=== PATIENT | male | born 1955 | race Caucasian/White ===

== ENCOUNTER 2017-01-25 08:42 | Inpatient (IN) | payer OTHER, MEDICARE ==
[2017-01-21 11:13] LABS: HEMATOCRIT 46.8 % (40.0-51.0); HEMOGLOBIN 15.9 g/dL (13.6-17.8)
[2017-01-21 11:15] LABS: ASCORBIC ACID (UR NOT ORDER) NEG (NEG); BILIRUBIN, URINE NEGATIVE (NEG); KETONE, URINE NEGATIVE (NEG); LEUKOCYTE ESTERASE(NOT OR NEG (NEG); WBC (NOT ORDERED) (RFLEX) < 1 (0-5)
[2017-01-21 11:26] LABS: BUN (BLOOD UREA NITROGEN) 13 MG/DL (6-23); CALCIUM, SERUM 9.5 MG/DL (8.5-10.4); CHLORIDE, SERUM 110 MMOL/L (96-112); CO2 (CARBON DIOXIDE) 27 MMOL/L (24-34); CREATININE 0.92 MG/DL (0.70-1.30); GFR AFRICAN AMERICAN 102 ML/MIN (>=60); GFR NON AFRICAN AMERICAN 88 ML/MIN (>=60); GLUCOSE, SERUM 93 MG/DL (60-99); POTASSIUM, SERUM 4.2 MMOL/L (3.5-5.3); SODIUM, SERUM 144 MMOL/L (135-148)
--- NOTE | ~2017-01-25 | OP ---
Record Of Operation [facility] [address] [place]. [address] NAME: BRADY MOISE : 51 STATUS : DIS IN PAT#: [id number] AGE: 61 ADM/REG DATE : 01/25/17 MR#: [id number] REPORT SERV DATE: 01/26/17 DICTATED BY: FRANCESCO WHITESIDE DATE: 01/26/17 REPORT STATUS : Draft TRANSCRIBED BY: MODL DATE: 01/26/17 DATE OF PROCEDURE: 01/25/2017 SURGEON: Francesco Whiteside M.D. TITLE OF OPERATION: 1. Robot-assisted laparoscopic radical prostatectomy. 2. Robotic-assisted laparoscopic extended bilateral pelvic lymph node dissection. 3. Open umbilical hernia repair. PREOPERATIVE DIAGNOSIS: Intermediate risk prostate cancer. POSTOPERATIVE DIAGNOSES: 1. Intermediate risk prostate cancer. 2. Umbilical hernia. SPECIMENS: 1. Anterior fat pad. 2. Prostate and seminal vesicles. 3. Bilateral pelvic lymph nodes. ANESTHESIA: General. COMPLICATIONS: None. IMPLANTS: 1. 18-Yi Torres catheter. 2. #10 round JEANNE drain. NARRATIVE: The patient was brought to the operating room, identified by his wristband. General anesthesia was induced and Ancef was given for preoperative antibiotics. He was placed in dorsal lithotomy position, prepped and draped in sterile fashion. His abdomen was insufflated to a pressure of 15 mmHg using a Veress needle. An 8 mm port was placed in a supraumbilical position under direct vision. The abdomen was inspected. There were some omental adhesions in the area of the umbilical hernia. Two 8 mm ports were placed in the left side of the body for a robotic ports and an 8 mm port was placed in the right side of the body for the final robotic port. Using laparoscopic scissors, the omental adhesions were sharply taken off the anterior abdominal wall. Care was taken to not damage any structures, there was no bowel involved. Next, a 12 mm port was placed in the right lower quadrant for scheduling assistant port and a 5 mm port was placed in the right upper quadrant for scheduling assistant port. The patient was placed in Trendelenburg and the robot was docked. I began the operation by incising the peritoneum over the seminal vesicles and vas deferens. These structures were dissected out bilaterally. The vas deferens were clipped and divided. The pedicles to the seminal vesicles were clipped and divided. Next, these structures were lifted anteriorly and Denonvilliers' fascia was sharply incised. The Denonvilliers' fascia was bluntly pressed onto the rectum from the base of the prostate to the apex. Next, the Record Of Operation [facility] [address] [place]. [address] NAME: BRADY MOISE : 51 STATUS : DIS IN PAT#: [id number] AGE: 61 ADM/REG DATE : 01/25/17 MR#: [id number] REPORT SERV DATE: 01/26/17 DICTATED BY: FRANCESCO WHITESIDE DATE: 01/26/17 REPORT STATUS : Draft TRANSCRIBED BY: MODL DATE: 01/26/17 bladder was dropped off the anterior abdominal wall with electrocautery and the prostate was identified. The prostate was defatted using bipolar cautery and scissors. The superficial dorsal vein was controlled with bipolar cautery and scissors. Next, the endopelvic fascia were divided bilaterally. The puboprostatic ligaments were divided bilaterally. The levator fibers were brushed bluntly off the prostate and the dorsal vein was precisely identified. The dorsal vein was then stapled with a 45 mm endovascular stapler. The dorsal vein was then oversewn with 3-0 V-Loc suture. This was suspended to the pubis bone for additional urethral support. Next, the bladder neck preserving operation was performed. The fibrofatty tissue overlying the bladder neck was controlled with bipolar cautery and scissors. The bladder neck was precisely identified and entered anteriorly. The detrusor fibers were then taken off the prostate with electrocautery. The posterior bladder neck was then sharply incised. This was then carried posteriorly to identify the seminal vesicles and vas deferens, these were all dissected out. These were then delivered into the operative field. The pedicles to the prostate were then clipped and divided bilaterally. A partial nerve sparing operation was performed given the high volume of 4+3=7 cancer was present bilaterally. Tissue was left on the prostate intentionally, this tissue was soft. This was carried out from the base to the apex bilaterally. The urethra was then sharply divided under direct vision ensuring adequate urethral length. The posterior striated sphincter was then divided. The prostate was then freed and placed into an EndoCatch bag. The arterial bleeders were controlled with clips. Next, the attention was turned to the pelvic lymph node dissection on the right side. All fibrofatty tissue beneath the external iliac vein, within the obturator fossa, and overlying the internal iliac vessels was removed. Care was taken to clip the lymphatics proximally and distally. The obturator nerve was identified and it was uninjured. Similarly on the left of the body, the fibrofatty tissue beneath the external iliac vein within the obturator fossa, and overlying the internal iliac vessels was removed. Care was taken to clip the lymphatics proximally and distally. The obturator nerve was identified and it was not injured. This was placed into an EndoCatch bag and sent as pelvic lymph nodes. Next, the posterior striated sphincter was reconstructed with a 3-0 V-Loc suture in the manner described by Casimiro. Finally, a vesicourethral anastomosis was performed in a running fashion with two interlocked 3-0 V-Loc sutures. The 18-Yi Torres catheter was placed into the bladder without difficulty. The bladder was irrigated, the connection was water tight. The balloon was inflated with 15 mL of sterile water. At this time, the robot was undocked. The 12 mm scheduling assistant port was closed with a 0 Vicryl suture using Mitchell-Grayson device. A #10 JEANNE drain was placed through the left most lateral robotic port. The ports were then sequentially removed. The supraumbilical incision was enlarged at the skin and fascial level. The prostate and lymph nodes were removed within their respective bags. The fascia was then closed with 0 Monocryl sutures in a [id number] fashion. The subcutaneous tissues were closed with a 3-0 Vicryl suture in interrupted fashion. The skin was closed with 4-0 Monocryl suture in a subcuticular fashion. A Dermabond dressing was placed. A TAP block was placed preoperatively. The drain was sutured in place with a 2-0 Prolene suture. Prior to closure of the fascia a periumbilical incision was made. The subcutaneous tissues were lifted off the fascia. A small dime-sized fascial defect was encountered. The hernia sac was identified, freed from its attachments, excised, and removed. The fascial defect was closed with a #1, 0 Monocryl suture in a [id number] fashion. The patient was then awoken from anesthesia and transferred to the recovery room in stable condition. There were no complications. Record Of Operation [place] [id number] [facility] [address]. [place]. [id number] NAME: BRADY MOISE : 51 STATUS : DIS IN PAT#: [id number] AGE: 61 ADM/REG DATE : 01/25/17 MR#: [id number] REPORT SERV DATE: 01/26/17 DICTATED BY: FRANCESCO WHITESIDE DATE: 01/26/17 REPORT STATUS : Draft TRANSCRIBED BY: PAT DATE: 01/26/17 KWAKU/PAT Francesco Whiteside MD / [id number] CC: Francesco Whiteside MD
[~2017-01-25 08:42] MED LIST: ALEVE220 MG PO; MEVACOR10 MG PO; MULTIPLE VIT PO; NAP500 PO; NORCO1 TA2 PO; NORCO1 TAB PO; PRIN5 PO; PROSCAR5 PO; VITAMIN D31000 UNIT PO
[2017-01-25 13:28] LABS: HEMATOCRIT 41.9 % (40.0-51.0)
[2017-01-25 13:36] LABS: BUN (BLOOD UREA NITROGEN) 10 MG/DL (6-23); CALCIUM, SERUM 8.5 MG/DL (8.5-10.4); CHLORIDE, SERUM 111 MMOL/L (96-112); CO2 (CARBON DIOXIDE) 27 MMOL/L (24-34); CREATININE 1.11 MG/DL (0.70-1.30); GFR AFRICAN AMERICAN 81 ML/MIN (>=60); GFR NON AFRICAN AMERICAN 70 ML/MIN (>=60); GLUCOSE, SERUM 130 MG/DL (60-99); SODIUM, SERUM 143 MMOL/L (135-148)
[2017-01-26 06:04] LABS: BUN (BLOOD UREA NITROGEN) 10 MG/DL (6-23); CALCIUM, SERUM 8.3 MG/DL (8.5-10.4); CHLORIDE, SERUM 110 MMOL/L (96-112); CREATININE 1.24 MG/DL (0.70-1.30); GFR AFRICAN AMERICAN 71 ML/MIN (>=60); GFR NON AFRICAN AMERICAN 61 ML/MIN (>=60); GLUCOSE, SERUM 154 MG/DL (60-99); POTASSIUM, SERUM 3.9 MMOL/L (3.5-5.3); SODIUM, SERUM 142 MMOL/L (135-148)
[2017-01-26 06:09] LABS: CO2 (CARBON DIOXIDE) 20 MMOL/L (24-34)
[2017-01-26 06:12] LABS: HEMATOCRIT 41.9 % (40.0-51.0)
[2017-01-26] MEDS ORDERED: DSS PO (07:47)
[2017-01-26] MEDS ORDERED: BACDS PO (07:47)
[2017-01-26] MEDS ORDERED: DIL2TAB PO (07:48)
== END 2017-01-26 11:19 | disposition home or self-care (01) | DRG 708 ==
LOC: SDC/OF 08:42 → PACU 12:57 → 4SO 17:12
PROVIDERS: Urology
PROC: 07TC4ZZ Resection of Pelvis Lymphatic, Percutaneous Endoscopic Approach (ICD-10-PCS; 2017-01-25)
PROC: 0WQF0ZZ Repair Abdominal Wall, Open Approach (ICD-10-PCS; 2017-01-25)
PROC: 8E0W4CZ Robotic Assisted Procedure of Trunk Region, Percutaneous Endoscopic Approach (ICD-10-PCS; 2017-01-25)
PROC: 0VT04ZZ Resection of Prostate, Percutaneous Endoscopic Approach (ICD-10-PCS; principal; 2017-01-25 10:30)
DX: C61 Malignant neoplasm of prostate (principal); I10 Essential (primary) hypertension; K42.9 Umbilical hernia without obstruction or gangrene; I25.10 Atherosclerotic heart disease of native coronary artery without angina pectoris; Z95.1 Presence of aortocoronary bypass graft
CPT/HCPCS: 36415; 80048; 81001; 85014; 85018; 86850; 86900; 86901; 88304; 88305; 88307; 88309; 93005; A9270-GY; J0690; J1885; J2250; J2370; J2405; J2710; J2795; J3010